=== PATIENT | female | born 1980 ===

== ENCOUNTER 2022-04-03 23:09 | Outpatient (CLI) | payer SELFPAY ==
[2022-04-03 23:00] VITALS: BMI 30.7
[2022-04-03 23:51] VITALS: BP 136/65; PULSE 84
[2022-04-03 23:59] VITALS: RESP 16
[2022-04-04] MEDS: NIFEdipine 10 mg Capsule 30 MG PO (00:34)
[2022-04-04] MEDS: dexamethasone 10 mg/mL INJ 6 MG IM (00:34)
[2022-04-04] MEDS: lactated ringers 1,000 ML 999 ML IV (00:35)
[2022-04-04 01:26] VITALS: BP 130/66; PULSE 111
[2022-04-04 01:28] LABS: Amphetamines Screen Urine Negative (Negative); Barbiturates Screen Urine Negative (Negative); Benzodiazepines Screen Urine Negative (Negative); Cocaine Screen Urine Negative (Negative); Opiate Screen Urine Negative (Negative); PCP Screen Urine Negative (Negative); THC Screen Urine Negative (Negative)
[2022-04-04 02:16] VITALS: BP 133/82; PULSE 102
== END 2022-04-04 02:31 | disposition home or self-care (01) ==
LOC: OPOB 23:13 → OBGYN 23:27
PROVIDERS: Family Provider Family Medicine; PCP Family Medicine; Visit Provider Obstetrics & Gynecology
DX: O26.899 Other specified pregnancy related conditions, unspecified trimester (principal); Z3A.00 Weeks of gestation of pregnancy not specified; R10.9 Unspecified abdominal pain
CPT/HCPCS: 59025; 80306; 96372; 99211; J1100; J7120

== ENCOUNTER 2022-04-04 12:10 | Outpatient (CLI) | payer SELFPAY ==
[2022-04-04 12:18] VITALS: RESP 17; TEMP 36.6
[2022-04-04 12:21] VITALS: BMI 30.7
[2022-04-04 12:27] VITALS: BP 157/65; PULSE 103
[2022-04-04] MEDS: dexamethasone 10 mg/mL INJ 6 MG IM (12:28)
[2022-04-04 12:30] VITALS: BP 157/65; PULSE 103
== END 2022-04-04 12:30 | disposition home or self-care (01) ==
LOC: OPOB 12:16 → OBGYN 12:17
PROVIDERS: Family Provider Family Medicine; PCP Family Medicine; Visit Provider Obstetrics & Gynecology
DX: O26.899 Other specified pregnancy related conditions, unspecified trimester (principal); Z3A.00 Weeks of gestation of pregnancy not specified
CPT/HCPCS: 96372; 99211; J1100